=== PATIENT | female | born 1990 | race Caucasian/White ===

== ENCOUNTER 2018-10-10 06:00 | Inpatient (IN) | payer OTHER ==
[2018-10-10] MEDS ORDERED: CARBOPROST TROMETHAMINE 250 MCG/ML 1 ML AMP IM PRN (06:15)
[2018-10-10] MEDS ORDERED: METHYLERGONOVINE 0.2 MG/ML 1 ML AMP IM PRN (06:15)
[2018-10-10] MEDS ORDERED: LIDOCAINE 0.5% (PF) 5 MG/ML (50 ML SDV) SQ PRN (06:15)
[2018-10-10] MEDS ORDERED: OXYTOCIN 20 UNITS/1000 ML NS 1,000 ML IV SCH ×2 (06:15→13:30)
[2018-10-10] MEDS ORDERED: OXYTOCIN 10 UNIT/ML 1 ML VIAL IM PRN (06:15)
[2018-10-10] MEDS ORDERED: TERBUTALINE 1 MG/ML VIAL SQ PRN (06:15)
[2018-10-10] MEDS: LACTATED RINGERS 1,000 ML IV SCH ×2 (06:47→10:01)
[2018-10-10 07:00] LABS: Basophils % (A) 0 %; Eosinophils # (A) 0.1 k/uL (0-0.7); Eosinophils % (A) 1 %; HCT 39.5 % (34.0-46.0); HGB 13.5 gm/dL (11.4-16.0); Lymphocytes # (A) 1.7 k/uL (1.0-4.8); Lymphocytes % (A) 28 %; MCH 34.3 pg (25.0-35.0); MCHC 34.3 g/dL (31.0-37.0); MCV 100.1 fL (80.0-100.0); Macrocytosis Slight; Mean Platelet Volume 7.3; Monocytes # (A) 0.4 k/uL (0-1.0); Monocytes % (A) 7 %; Neutrophils # (A) 3.7 k/uL (1.3-7.7); Neutrophils % (A) 61 %; Platelet Count 188 k/uL (150-450); RBC 3.95 m/uL (3.80-5.40)
[2018-10-10 07:19] VITALS: BMI 33.4
--- NOTE | 2018-10-10 07:56 | P.HPOB ---
History of Present Illness H&P Date: 10/10/18 Chief Complaint: Advanced cervical dilation This is a 27-year-old 2 para 1001 woman with an estimated due date of based on LMP consistent with second trimester ultrasound. She presents at 39 and one sevenths weeks gestation for elective induction of labor with advanced cervical dilation. She is been 4+ centimeters dilated in the office this week. Her has been uncomplicated. Laboratory data: Group B strep negative, blood type A+, antibody screen negative , rubella immune, VDRL nonreactive, hepatitis B surface antigen negative, HIV negative, glucose tolerance testing within normal limits. Obstetric history significant for postdates normal spontaneous vaginal delivery in 2016 of a 7 lbs. 11 oz. female infant. Review of Systems All systems: negative Past Medical History Past Medical History: No Reported History Additional Past Medical History / Comment(s): 2016 History of Any Multi-Drug Resistant Organisms: None Reported Past Surgical History: No Surgical Hx Reported Past Anesthesia/Blood Transfusion Reactions: No Reported Reaction Past Psychological History: No Psychological Hx Reported Smoking Status: Never smoker Past Alcohol Use History: None Reported Past Drug Use History: None Reported - Past Family History Mother Family Medical History: Hyperlipidemia, Hypertension Medications and Allergies Home Medications Medication Instructions Recorded Confirmed Type Pnv,Calcium 72/Iron/Folic Acid 1 tab PO DAILY 07/05/16 10/10/18 History [ Plus Tablet] Allergies Allergy/AdvReac Type Severity Reaction Status Date / Time No Known Allergies Allergy Verified 07/05/16 06:30 Exam Vital Signs Temp Resp BP Pulse Ox 10/10/18 07:13 97.7 F 16 126/71 100 Intake and Output 10/09/18 10/10/18 10/10/18 22:59 06:59 14:59 Other: Weight 99.79 kg 99.79 kg Targeted physical exam is performed. This is a pleasant, visibly gravid, female in no obvious distress. The abdomen is gravid with a fundal height appropriate for gestational age. Estimated weight 7-7-1/2 pounds. On pelvic examination the cervix is 4-5 cm dilated, 70% effaced, vertex in the -3 station. Artificial rupture of membranes is undertaken and clear fluid is noted. heart tones are reassuring by external monitoring and she is rhonda irregularly. Results Result Diagrams: 10/10/18 06:35 Abnormal Lab Results - Last 24 Hours (Table) 10/10/18 Range/Units 06:35 MCV 100.1 H (80.0-100.0) fL Assessment and Plan (1) 39 weeks gestation of Current Visit: Yes Status: Acute Code(s): Z3A.39 - 39 WEEKS GESTATION OF SNOMED Code(s): 39944103 Plan: 27-year-old 2 para 1 woman admitted at 39 and one sevenths weeks gestation with advanced cervical dilation for elective induction of labor. She is group B strep negative and Rh+. status is currently reassuring by external monitoring. She may have an epidural anesthetic upon request in active labor. Anticipate normal spontaneous vaginal delivery.
[2018-10-10] MEDS ORDERED: fentaNYL (PF) 50 MCG/ML 5 ML AMP ONE (09:20)
[2018-10-10] MEDS ORDERED: ROPIVACAINE 5MG/ML 20ML VIAL ONE (09:20)
[2018-10-10] MEDS ORDERED: SODIUM CHLORIDE 0.9% 100 ML BAG ONE (09:20)
[2018-10-10] MEDS ORDERED: diphenhydrAMINE 25 MG CAP PO PRN (13:23)
[2018-10-10] MEDS ORDERED: LANOLIN CREAM 5 GM TUBE TOPICAL PRN (13:23)
[2018-10-10] MEDS ORDERED: diphenhydrAMINE 50 MG CAP PO PRN (13:23)
[2018-10-10] MEDS ORDERED: ACETAMINOPHEN TAB 325 MG TAB PO PRN (13:23)
[2018-10-10] MEDS ORDERED: diphenhydrAMINE 50 MG/ML 1 ML VIAL IVP PRN ×2 (13:23)
[2018-10-10] MEDS ORDERED: BENZOCAINE/MENTHOL SPRAY 1 GM/SPRAY AEROSOL TOPICAL PRN (13:23)
[2018-10-10] MEDS ORDERED: ZOLPIDEM 5 MG TAB PO PRN (13:23)
[2018-10-10] MEDS ORDERED: HYDROCORTISONE 2.5% RECTAL CREAM 30 GM TUBE RECTAL PRN (13:23)
[2018-10-10] MEDS ORDERED: SIMETHICONE 80 MG CHEWABLE PO PRN (13:23)
[2018-10-10] MEDS ORDERED: WITCH HAZEL 1 EACH MED..PAD TOPICAL PRN (13:23)
--- NOTE | 2018-10-10 13:23 | P.PROBDLV ---
Vaginal Delivery Note - . Vaginal Delivery Note: Findings: Female in the left occiput anterior position with nuchal cord 1 with Apgars of 9 at 1 minute and 9 at 5 minutes weighing 8 lbs. 9 oz., 3880 g. Second-degree perineal laceration. Moderate uterine atony postdelivery managed with Pitocin intravenously and Methergine and uterine massage. EBL 300 mL's. Delivery summary: This is a 27-year-old 2 para 1 woman admitted for elective induction of labor with advanced cervical dilation at 39 and one sevenths weeks. She was 4+ centimeters dilated when she came in and underwent artificial rupture of membranes at approximately 7:50 AM. Clear fluid was noted at that time. Pitocin induction of labor was initiated and she did ultimately received an epidural anesthetic. She reached complete cervical dilation by approximately 12:15 PM. She did commenced pushing however had poor maternal effort secondary to very dense epidural. On the epidural was allowed to wear off some what with good return of sensation. She didn't did then pushed effectively to . At that time she was repositioned, prepped and draped in the dorsal modified lithotomy position. With additional maternal effort the head delivered from the left occiput anterior position. Nuchal cord 1 was reduced. The anterior followed by the posterior shoulders were then delivered and the rest the infant was delivered onto the field. The nose and mouth were bulb suctioned and the infant was placed on the maternal abdomen. After approximately 2 minutes the cord was clamped and cut. Apgars 9 at 1 minute and 9 at 5 minutes and weight was 8 lbs. 9 oz. An intact, three-vessel cord placenta was delivered after approximately 5 minute third stage of labor. The uterus was atonic and was massaged bimanually. Small amount of clot and debris was removed from the low uterine segment and the uterus did become quite firm. The perineum was infused with lidocaine and 3-0 Vicryl suture was utilized to repair the second-degree perineal laceration the usual fashion. The rest of the vagina and cervix were inspected and no further lacerations were noted. She did become atonic again which was managed with fundal massage. Her uterus again became firm however she was given a single dose of IM Methergine. EBL was approximately 300 mL's both mother and were doing well post delivery in the room.
[2018-10-10] MEDS: SENNOSIDES-DOCUSATE SODIUM 1 EACH TAB PO SCH (19:47)
[2018-10-11] MEDS: IBUPROFEN 600 MG TAB PO PRN ×2 (02:43→08:33)
[2018-10-11 07:09] LABS: Basophils % (A) 0 %; Eosinophils # (A) 0.1 k/uL (0-0.7); Eosinophils % (A) 1 %; Lymphocytes # (A) 1.8 k/uL (1.0-4.8); Lymphocytes % (A) 19 %; MCH 33.7 pg (25.0-35.0); MCHC 33.3 g/dL (31.0-37.0); MCV 101.4 fL (80.0-100.0); Macrocytosis Slight; Mean Platelet Volume 7.4; Monocytes # (A) 0.4 k/uL (0-1.0); Monocytes % (A) 4 %; Neutrophils # (A) 7.2 k/uL (1.3-7.7); Neutrophils % (A) 75 %; Platelet Count 174 k/uL (150-450); RBC 3.25 m/uL (3.80-5.40); RDW 13.9 % (11.5-15.5); WBC 9.7 k/uL (3.8-10.6)
[2018-10-11] MEDS: SENNOSIDES-DOCUSATE SODIUM 1 EACH TAB PO SCH (07:33)
[2018-10-11 07:48] VITALS: BP 135/81; PULSE 78; RESP 18; TEMP 97.7
--- NOTE | 2018-10-11 10:28 | P.DS ---
Providers Date of admission: 10/10/18 06:02 Expected date of discharge: 10/11/18 Attending physician: Candy De Los Santos Primary care physician: Stated None - Discharge Diagnosis(es) (1) 39 weeks gestation of Current Visit: Yes Status: Acute (2) Normal spontaneous vaginal delivery Current Visit: No Status: Acute (3) Nuchal cord Current Visit: No Status: Acute (4) Perineal laceration with delivery, second degree Current Visit: No Status: Acute Hospital Course: This is a 27-year-old 2 now para 2002 woman who is admitted for elective induction of labor at 39 and one sevenths weeks gestation. She had advanced cervical dilation and upon admission was 4-5 cm dilated. She underwent a Pitocin induction of labor with artificial rupture of membranes. She received an epidural anesthetic. status was reassuring throughout the first stage of labor. She went on to have an unremarkable delivery of a liveborn female infant over second-degree perineal laceration with Apgars of 9 at 1 minute and 9 at 5 minutes weighing 8 lbs. 9 oz. Please see the delivery summary for complete details. The patient's course was entirely unremarkable. By the morning of day #1 she was ambulating and voiding without difficulty. She was breast-feeding successfully. She had moderate lochia and tolerable cramping. Her vital signs were stable. She was therefore discharged home with routine instructions for care and follow-up. Procedures: normal spontaneous vaginal delivery Patient Condition at Discharge: Good Plan - Discharge Summary New Discharge Prescriptions: No Action Pnv,Calcium 72/Iron/Folic Acid [ Plus Tablet] 1 tab PO DAILY Discharge Medication List Pnv,Calcium 72/Iron/Folic Acid [ Plus Tablet] 1 tab PO DAILY 07/05/16 [ History] Follow up Appointment(s)/Referral(s): Candy De Los Santos MD [STAFF PHYSICIAN] - 6 Weeks Activity/Diet/Wound Care/Special Instructions: Follow-up in the office in 6 weeks . Call with any concerning signs or symptoms including heavy vaginal bleeding, severe abdominal pain, fever greater than 101, swelling or redness of the lower extremities, foul vaginal discharge, or signs of depression. Nothing in the vagina for 6 weeks after delivery, specifically no intercourse. Discharge Disposition: HOME SELF-CARE
== END 2018-10-11 13:43 | disposition home or self-care (01) | DRG 807 ==
LOC: 4FBP 06:02
PROVIDERS: ADMIT Obstetrics & Gynecology; ATTEND Obstetrics & Gynecology
PROC: 10E0XZZ Delivery of Products of Conception, External Approach (ICD-10-PCS; principal; 2018-10-10)
PROC: 0KQM0ZZ Repair Perineum Muscle, Open Approach (ICD-10-PCS; 2018-10-10)
PROC: 10907ZC Drainage of Amniotic Fluid, Therapeutic from Products of Conception, Via Natural or Artificial Opening (ICD-10-PCS; 2018-10-10)
PROC: 0U7C7ZZ Dilation of Cervix, Via Natural or Artificial Opening (ICD-10-PCS; 2018-10-10)
DX: O69.81X0 Labor and delivery complicated by cord around neck, without compression, not applicable or unspecified (principal); Z37.0 Single live birth; O62.2 Other uterine inertia; O70.1 Second degree perineal laceration during delivery; Z3A.39 39 weeks gestation of pregnancy; Z82.49 Family history of ischemic heart disease and other diseases of the circulatory system; Z84.89 Family history of other specified conditions
CPT/HCPCS: 85025; 86850; 86900; 86901